=== PATIENT | female | born 1990 ===

== ENCOUNTER 2016-12-10 20:33 | Inpatient (IN) | payer OTHER ==
[2016-12-10 21:35] VITALS: BMI 28.7
[2016-12-10] MEDS ORDERED: Ampicillin 2 GM in Sodium Chloride 0.9% 100 ML IVPB STA (23:02)
[2016-12-10] MEDS ORDERED: AMPicillin 1 GM in Sodium Chloride 0.9% 100 ML IVPB SCH (23:15)
[2016-12-10] MEDS: Lactated Ringer's 1,000 ML IV SCH (23:30)
[2016-12-10 23:53] LABS: BASO % 0.4 % (0.0-2.0); EOS % 0.2 % (0.0-4.0); HEMATOCRIT 36.3 % (34.0-47.0); LYMPH # 1.9 K/uL (1.0-4.3); LYMPH % 19.1 % (20.0-40.0); MEAN CORPUSCULAR HEMOGLOBIN 26.1 pg (27.0-31.0); MEAN CORPUSCULAR HGB CONC 31.8 g/dL (33.0-37.0); MEAN PLATELET VOLUME 11.2 fl (7.2-11.7); MONO # 0.5 K/uL (0.0-0.8); MONO % 5.2 % (0.0-10.0); NEUT # 7.6 K/uL (1.8-7.0); NEUT % 75.1 % (50.0-75.0); NRBC % 0.1 % (0.0-0.0); RED CELL DISTRIBUTION WIDTH 21.4 % (11.5-14.5); WHITE BLOOD COUNT 10.1 K/uL (4.8-10.8)
[2016-12-11] MEDS ORDERED: Fentanyl/Bupivacaine HCl 250 ML EPI ONE (00:14)
[2016-12-11] MEDS ORDERED: Lidocaine 2% PF (10 ml) Amp ONE (00:29)
[2016-12-11] MEDS: Lactated Ringer's 1,000 ML IV SCH (00:30)
[2016-12-11] MEDS ORDERED: Penicillin G 5 Million Unit Vial IVPB ONE (00:59)
[2016-12-11] MEDS ORDERED: Lactated Ringer's 1,000 ML IV SCH (01:30)
--- NOTE | 2016-12-11 02:08 | OBADHP ---
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 Lungs: clear to auscultation bilaterally, no wheezing Abdomen: gravid CVA: negative SSE/PELVIC EXN: negative for vaginal bleed; 1 cm; 40-50 cm dilation MONITOR (normal) Variablity: moderate: 6-25 bpm ACC: 15x15 DECC: none FHR: 139 ASSESSMENT: 26 yo IUP at 39.0 wks with h/o hypothyroid and anemia observed for progression of labor PLAN: continue to monitor for dilation of cervix, ROM, CTX, FM BERMUDEZ PGY1 The patient was seen with the resident I agree with note. The patient will be admitted to labor an d delivery adequate pelvis noted vertex presentation estimated weight 7-1/2 pounds anticipate n ormal vaginal delivery Datetime: 12/10/2016 00:18 Pelvic Type - PN: Adequate Extremities - PN: Normal Abdomen - PN: Normal Back - PN: Normal Breast - PN: Not Done Lungs - PN: Normal Heart - PN: Normal Thyroid - PN: Not Done Neurologic - PN: Normal HEENT - PN: Normal General - PN: Normal FHR - Baseline A Provider: 150 Contraction Comments Provider: x 2 minutes Vital Signs Provider: Reviewed Vital Signs Provider Details: mildly elevated 2/2 CTX pain IP Chief Complaint: Uterine contractions; Suspected ruptured membranes NICHD Variability Prov Fetus A: Moderate 6-25bpm NICHD Accel Fetus A IP Provider: 15X15 FHR Category Provider Fetus A: Category I NICHD Decel Fetus A IP Provider: None Dilatation, Provider: 4 Effacement, Provider: 90 Station, Provider: 0 Genitourinary Exam: Normal DTRs - PN: Not Done IP Adm Impression: Term, intrauterine ; Active labor IP Admit Plan: Admit to unit; Initiate labor protocol
[2016-12-11] MEDS ORDERED: Oxytocin 30 units/LR 500ML 30 U/500 ML BAG IV ONE ×4 (09:22→17:22)
--- NOTE | 2016-12-11 09:51 | OBPN ---
Datetime: 12/11/2016 09:45 IP Informed Consent Obtain: Vaginal Delivery IP Procedures: Artificial ROM; Sterile Vag Exam IP Progress Plan: Augmentation FHR - Baseline A Provider: 140 IP Progress Note Comment: Taking over care for patient, admitted in spontaneous labor. at term, fully dilated, with epidural, GBS positive s/p penicillin rx SVE done: FD, +1, bulging bag, AROM, clear, scant fluid A/P: fully dilated at 5a with epidural Fetus: category 2 tracing, good scalp stim response. Variable deccels with good recovery. Labor: protracted second stage, start pushing, start pitocin GBS +, treated Plan on Vital Signs Provider: Reviewed NICHD Accel Fetus A IP Provider: 15X15 FHR Category Provider Fetus A: Category II NICHD Variability Prov Fetus A: Moderate 6-25bpm NICHD Decel Fetus A IP Provider: Variable Datetime: 12/11/2016 00:18 Dilatation, Provider: 4 Effacement, Provider: 90 Station, Provider: 0 Datetime: 12/10/2016 00:18 Contraction Comments Provider: x 2 minutes Vital Signs Provider Details: mildly elevated 2/2 CTX pain
[2016-12-11] MEDS ORDERED: Oxycodone/Acetaminophen 5/325 mg Tab PO PRN ×2 (11:09)
--- NOTE | 2016-12-11 11:32 | OBDS ---
DELIVERY PERSONNEL Delivery Doctor: Dedra Brenner MD Sustainable Development Policy Analyst: MBorreoRN/WGrimmRN Resident: Shravan Grace MATERNAL INFORMATION Delivery Anesthesia: Epidural Medications in Delivery: Pitocin Estimated Blood Loss (ml): 300 Placenta Cultured: No Maternal Complications: None Provider Comments: 26 y/o @ 39.1 weeks delivered a male at 10:03 via . The was ERIC, nuchal cord x1 loose, non-reducible, clamped and cut, anterior shoulder was delivere d w/o complications and the rest of the body was delivered w/o complications. placed on moth er's chest upon delivery, bulb suctioned. Cord blood collected. Placenta delivered intact. Fundal massage and hemostasis achieved. 2nd degree vaginal and perineal lacerations were repaired with 2-0 vicryl sutures. Rectal exam performed, no sutures and intact. The APGARS were 9,9 at 1 and 5 minutes respectively. The weight was measured at 2965 g. Shravan Grace Corporate Counsel PGY-2 Dedra Brenner MD Attending: I was present for entire vaginal delivery and did delivery with resident physician. Delivery note above reviewed and agree with findings. LABOR SUMMARY EDC: 12/17/2016 00:00 No. Babies in Womb: 1 Attempted: No Labor Anesthesia: Epidural LABOR INFORMATION Reason for Induction: Not Applicable Onset of Labor: 12/11/2016 00:15 (Annotations: Data stored by N on behalf of user) Complete Dilatation: 12/11/2016 09:20 Oxytocin: Augmentation Group B Beta Strep: Positive Antibiotics # of Doses: Pen G 5million units@ 0100/Pen G2.5 million units @ 0500,0900 Antibiotics Time of Last Dose: 0900 Steroids Given: None Reason Steroids Not Administered: Not Applicable MEMBRANES Membranes Rupture Method: Spontaneous Rupture of Membranes: 12/11/2016 00:30 Length of Rupture (hrs): 9.55 Amniotic Fluid Color: Clear Amniotic Fluid Amount: Small Amniotic Fluid Odor: Normal STAGES OF LABOR Stage 1 hrs: 9 Stage 1 min: 5 Stage 2 hrs: 0 Stage 2 min: 43 Stage 3 hrs: 0 Stage 3 min: 14 Total Time in Labor hrs: 10 Total Time in Labor min: 2 VAGINAL DELIVERY Episiotomy: None Laceration Extension: Second Degree Laceration Type: Perineal; Vaginal Other Laceration: mid vaginal and perineal laceration 2nd degreee Laceration Repair: Yes Laceration Repair Note: vaginal 2nd degree laceration repaired w/ 2-0 vicryl perineal 2nd degree laceration repiared w/ 2-0 vicryl patient tolerated procedure w/ minimal pain and discomfort Sponge Count Correct: Yes Sharps Count Correct: Yes Count Comment: 10 laps used and accounted 3 2-0 vicryl needles used and accounted, discarded in sharps container BABY A INFORMATION Delivery Date/Time: 12/11/2016 10:03 Method of Delivery: Vaginal Born in Route : No : N/A Forceps: N/A Vacuum Extraction: N/A Shoulder Dystocia : No SHOULDER DYSTOCIA BABY A Infant Delivery Date/Time: 12/11/2016 10:03 PRESENTATION/POSITION BABY A Presentation: Cephalic Cephalic Presentation: Vertex Vertex Position: Right Occipital Anterior Breech Presentation: N/A PLACENTA INFORMATION BABY A Placenta Delivery Time : 12/11/2016 10:17 Placenta Method of Delivery: Spontaneous Placenta Status: Delivered SCORES BABY A Heart Rate 1 min: >100 bpm Resp Effort 1 min: Good Cry Reflex Irritability 1 min: Cough or Sneeze or Pulls Away Muscle Tone 1 min: Active Motion Color 1 min: Body Zephyr, Extremities Blue Resuscitation Effort 1 min: Tactile Stimulation SCORE 1 MIN: 9 Heart Rate 5 min: >100 bpm Resp Effort 5 min: Good Cry Reflex Irritability 5 min: Cough or Sneeze or Pulls Away Muscle Tone 5 min: Active Motion Color 5 min: Body Zephyr, Extremities Blue Resuscitation Effort 5 min: N/A SCORE 5 MIN: 9 INFANT INFORMATION BABY A Gestational Age at Delivery: 39.1 Gestational Status: Term Outcome : Liveborn Infant Condition : Stable Sex: Male IDENTIFICATION/MEDS BABY A ID Band Number: [id number] ID Band Location: Left Leg; Left Arm Vitamin K Given : Not Given Erythromycin Given: Not Given WEIGHT/LENGTH BABY A Birthweight (gms): 2965 Weight (lb): 6 Weight (oz): 9 CORD INFORMATION BABY A No. 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
[2016-12-11 12:52] LABS: HEMATOCRIT 28.3 % (34.0-47.0); MEAN CORPUSCULAR HEMOGLOBIN 26.4 pg (27.0-31.0); MEAN CORPUSCULAR HGB CONC 32.2 g/dL (33.0-37.0); RED CELL DISTRIBUTION WIDTH 21.6 % (11.5-14.5); WHITE BLOOD COUNT 16.3 K/uL (4.8-10.8)
[2016-12-11 13:02] LABS: ALB/GLOB RATIO 0.9 (1.0-2.1); ALKALINE PHOSPHATASE 118 U/L (38-126); ALT/SGPT 19 U/L (9-52); AST/SGOT 20 U/L (14-36); BILIRUBIN,TOTAL 0.4 mg/dl (0.2-1.3); BLOOD UREA NITROGEN 7 mg/dl (7-17); CALCIUM 8.3 mg/dL (8.4-10.2); CARBON DIOXIDE 20 mmol/L (22-30); CHLORIDE 107 mmol/L (98-107); GFR AFRICAN-AMERICAN > 60; GLUCOSE,RANDOM 86 mg/dL (65-105); POTASSIUM 3.9 MMOL/L (3.6-5.0); SODIUM 132 mmol/l (132-148); TOTAL PROTEIN 5.6 G/DL (6.3-8.2); URIC ACID 5.1 mg/Dl (2.2-7.5)
[2016-12-11 17:29] LABS: RBC URINE 36 /hpf (0-3); URINE BILIRUBIN NEGATIVE (NEGATIVE); URINE BLOOD MODERATE (NEGATIVE); URINE COLOR YELLOW (YELLOW); URINE GLUCOSE (UA) NEG (Normal); URINE KETONE NEGATIVE (NEGATIVE); URINE LEUKOCYTE ESTERASE NEG Leu/uL (Negative); URINE PROTEIN NEGATIVE (NEGATIVE); URINE UROBILINOGEN 0.2-1.0 mg/dL (0.2-1.0); WBC URINE 3 /hpf (0-5)
[2016-12-11] MEDS: Benzocaine/Menthol SPRAY TOP PRN (20:49)
[2016-12-12] MEDS: Levothyroxine 100 MCG TAB PO SCH (06:19)
[2016-12-12 07:39] LABS: HEMATOCRIT 25.3 % (34.0-47.0); MEAN CELL VOLUME 83.7 fl (81.0-99.0); MEAN CORPUSCULAR HEMOGLOBIN 26.7 pg (27.0-31.0); WHITE BLOOD COUNT 9.7 K/uL (4.8-10.8)
--- NOTE | 2016-12-12 12:17 | OBPPN ---
Datetime: 12/12/2016 06:37 PP Pain Prov: Within normal limits PP Nausea Prov: Denies PP Flatus Prov: Yes PP BM Prov: No PP Breasts Prov: Not Done PP Heart Prov: Normal PP Lungs Prov: Normal PP Abdomen/Uterus Prov: Normal PP Lochia Prov: Normal PP Vulva/Perineum Prov: Not Done PP CVA Tenderness Prov: Normal PP Extremities Prov: Normal PP C/S Incision Prov: Not Applicable PP Progress Prov: Normal PP Impression Prov: Normal progression PP Plan Prov: Continue present management PP Progress Note Prov: S: 26 yo s/p NVD on 12/11/16 at 10:03. Pt. is seen and examined at [facility] this AM. No overnight events. Pt reports occasional abdominal pain, but well controlled with pain meds. Pt is ambulating without any difficulties. Breast feeding baby. Tolerating PO diet. Lochia is similar to light menses in volume. Voiding freely, No Bowel movement, but passing gas per rectum. Den ies fever/chills, diarrhea, nausea/vomiting, chest pain, dyspnea, and dizziness. O: VS: stable GEN: NAD Cardio: S1S2, no M/G/R Resp: clear breath sounds b/l Abdomen: BS+, NT, Uterus is firm and at the level of the umbilicus. EXT: No edema, calves nontender NEURO/PSYCHI: AAOx3, no grossly focal deficit, preserved affect and mood. Assessment/Plan: 26 yo s/p NVD on 12/11/16 at 10:03. Pt remains afebrile, tolerating pain wit h medication, tolerating PO intake, doing well on PPD1. OOB with caution pt ambulating Ibuprofen 600mg for pain. Colace 100mg PO BID/Senokot 17.2 mg qHS for constipation Encourage and ambulating F/u CBC post-delivery: pending --- Bolivar Canchola, PGY-1 OB Hospitalist note: This pt was seen and examined by me. Agree with above note. RAYSHAWN VU PP Procedures: None Vital Signs Provider PP: Reviewed; Within Normal Limits
[2016-12-13] MEDS: Levothyroxine 100 MCG TAB PO SCH (06:46)
[2016-12-13] MEDS: Benzocaine/Menthol SPRAY TOP PRN (09:08)
[2016-12-13] MEDS ORDERED: Influenza Vaccine 18yr & older 0.5 ML/45 MCG SYR IM ONE (09:46)
--- NOTE | 2016-12-13 10:20 | OBPPN ---
Datetime: 12/13/2016 06:18 PP Pain Prov: Within normal limits PP Nausea Prov: Denies PP Flatus Prov: Yes PP BM Prov: Yes PP Breasts Prov: Not Done PP Heart Prov: Normal PP Lungs Prov: Normal PP Abdomen/Uterus Prov: Normal PP Lochia Prov: Normal PP Vulva/Perineum Prov: Not Done PP CVA Tenderness Prov: Normal PP Extremities Prov: Normal PP C/S Incision Prov: Not Applicable PP Progress Prov: Normal PP Impression Prov: Normal progression PP Plan Prov: Discharge PP Progress Note Prov: S: 26 yo s/p NVD on 12/11/16 at 10:03. Pt. is seen and examined at [facility] this AM. No overnight events. Pt reports occasional abdominal pain, but well controlled with pain meds. Pt is ambulating without any difficulties. Breast feeding baby. Tolerating PO diet. Lochia is similar to light menses in volume. Voiding freely, Bowel movement and passing gas per rectum. Denies fever/chills, diarrhea, nausea/vomiting, chest pain, dyspnea, and dizziness. O: VS: stable GEN: NAD Cardio: S1S2, no M/G/R Resp: clear breath sounds b/l Abdomen: BS+, NT, Uterus is firm and at the level of the umbilicus. EXT: No edema, calves nontender NEURO/PSYCHI: AAOx3, no grossly focal deficit, preserved affect and mood. Assessment/Plan: 26 yo s/p NVD on 12/11/16 at 10:03. Pt remains afebrile, tolerating pain wit h medication, tolerating PO intake, doing well on PPD2. OOB with caution pt ambulating Ibuprofen 600mg for pain. Senokot 17.2 mg qHS for constipation Encourage and ambulating F/u CBC post-delivery: 8.1/25.3 Iron Sulfate: anemia --- Bolivar Canchola, PGY-1 [facility]. On rounds this AM, I saw and examined this patinent. Agree with PGY1 note. MAHNDO IP PP Procedures: None Vital Signs Provider PP: Reviewed; Within Normal Limits
--- NOTE | 2016-12-13 10:23 | OBDCSUM ---
Datetime: 12/13/2016 06:19 Discharged to, Provider: Home Follow up at, Provider: GÉNESIS Disch Instr Activity: Normal activity Disch Instr Diet: Regular Discharge Instructions, Provider: Routine instructions given Discharge Diagnosis, Provider: Term Delivered Discharge Time: 12/13/2016 10:00 Follow up in weeks, Provider: 4-6 weeks post Disch Referrals: None Contraception discussed, Prov: Yes Disch Activity Restrictions: No sexual activity; Nothing in vagina - [place]ooling, tampons, douche Discharge Comment, Provider: DOA: 12/10/2016 EGA: 39.0 Diagnosis: NVD Term PRisk factors: GBS+ summary of : 26 yo F L_D summary DOL: 12/11/2016 at 10:03 NVD NB: M : 9 Weight: 2965g PP summary No serious complications during PP. Lochia= menses, mild pain, controlled with medications Rubella immune, Tdap 10/29/2016 Blood type: A+ CBC pp: 8.1/25.3 Discharge Date: 12/13/2016 Time 10:00 AM Discharge Instructions: -encourage -Iron Sulfate: anemia -percocet/Ibuprofen for pain PRN -Senokot 17.2 mg qHS for constipation -Ambulate as tolerated -f/u NB visit and PP visit --- [facility] Can[facility] this AM, I saw and examined this patinent. Agree with PGY1 note. MAHNDO Discharge Diagnosis Prov Other: anemia Contraception after Delivery: Foam/Condoms
[2016-12-13 19:15] VITALS: BP 124/78; PULSE 87; RESP 20; TEMP 98.2; O2SAT 99
== END 2016-12-13 13:40 | disposition home or self-care (01) | DRG 373 ==
LOC: H.EROB2 20:33 → H.L&D 23:03 → H.OB/GYN 12-11 17:14
PROVIDERS: ADMIT Obstetrics & Gynecology Gynecology; ATTEND Obstetrics & Gynecology Gynecology
PROC: 4A1HXCZ Monitoring of Products of Conception, Cardiac Rate, External Approach (ICD-10-PCS; 2016-12-10)
PROC: 10E0XZZ Delivery of Products of Conception, External Approach (ICD-10-PCS; principal; 2016-12-11)
PROC: 0KQM0ZZ Repair Perineum Muscle, Open Approach (ICD-10-PCS; 2016-12-11)
DX: O69.81X0 Labor and delivery complicated by cord around neck, without compression, not applicable or unspecified (principal); E03.9 Hypothyroidism, unspecified; O99.02 Anemia complicating childbirth; O70.1 Second degree perineal laceration during delivery; Z37.0 Single live birth; O99.284 Endocrine, nutritional and metabolic diseases complicating childbirth; D64.9 Anemia, unspecified; O99.824 Streptococcus B carrier state complicating childbirth; Z3A.39 39 weeks gestation of pregnancy